=== PATIENT | male | born 1945 | race Caucasian/White ===

== ENCOUNTER 2017-11-06 03:05 | Inpatient (IN) | payer OTHER ==
[~2017-11-06] VITALS: Ht 175.3 cm; Wt 83.1 kg
--- NOTE | ~2017-11-06 | PR ---
[place], [place] PROGRESS NOTE NAME: JEANNA GOMEZ UNIT #: [id number] ROOM: 317 DOCTOR: LUIS MAXWELL MD BIRTHDATE: [birth year] DOS: 11/18/2017 CHIEF COMPLAINT: "Oh the sciatica is really bothering me, if I could only have some Tylenol for a few days it will probably knock it out." SUMMARY OF THE VISIT: The patient was interviewed in the back of the dining area where he sat on a couch watching television. He engaged readily in conversation. He was very much aware that today was [place] and he was anxious to watch the ball drop and call his and see how she was doing. On a negative note, he does report right-sided sciatica that flares up from time to time. In the past Tylenol for a few days usually stopped the pain. He requested that I do the same for him now. He reports that he is sleeping well and that the posttraumatic stress disorder symptoms that were so evident upon admission have nearly completely subsided. He is not as hypervigilant during the day. He feels very much positive and very much positive for the future. He convincingly denies any medication side effects. MENTAL STATUS: He is alert and oriented to person, place and time. Mood does seem to be euthymic. Affect appropriate. There is no harris or hypomania. There are no overt auditory or visual hallucinations. No delusions, no paranoia. Short, intermediate and long-term memories are intact. PLAN: I will write for Tylenol 650 mg t.i.d. for 3 days, then discontinue. Engage in individual and escalona milieu activity, returning to the least restrictive environment when psychiatrically stable. LUIS MAXWELL MD CM:PNTRANS [id number] LUIS MAXWELL MD 11/18/17 1053 interface
--- NOTE | ~2017-11-06 | DS ---
[place], [place] DISCHARGE SUMMARY NAME: JEANNA GOMEZ UNIT #: [id number] ROOM: 311 DOCTOR: LUIS MAXWELL MD BIRTHDATE: [birth year] DOS: 11/30/2017 ADDENDUM CHIEF COMPLAINT: "I am like a bad armand, I keep coming back doctor." SUMMARY OF THE VISIT: The patient was interviewed as he sat eating his breakfast in the dining area. He was bright, jovial and pleasant and joked with me about still being here in the hospital. He was aware that there was a delay in transportation to his [facility] and is hopeful that the transportation will take effect today and be able to get him closer to his . He reports good sleep and appetite. His mood is bright and pleasant. He is not experiencing posttraumatic stress disorder symptomatology any longer. He convincingly denies suicidal thoughts, homicidal thoughts or any self-injurious thoughts and likewise denies any medication side effects. He voices a readiness to leave the hospital. MENTAL STATUS: He is alert and oriented. Mood does seem to be euthymic. Affect appropriate. There are no symptoms of depression, harris or psychosis. Memory for the most part is intact. DIAGNOSIS AND DISPOSITION: As per previous discharge summaries. He will be discharged today. LUIS MAXWELL MD CM:DISCHARG [id number] LUIS MAXWELL MD 11/30/17 2323 interface
--- NOTE | ~2017-11-06 | PR ---
[place], [place] PROGRESS NOTE NAME: JEANNA GOMEZ UNIT #: [id number] ROOM: 317 DOCTOR: LISA ROSS,MY BIRTHDATE: [birth year] DOS: 11/07/2017 CHIEF COMPLAINT: "No, I walked the tong all night." SUMMARY OF THE VISIT: The patient was interviewed in his room. The patient complains of not getting much sleep last night, but rather walking around. At a later time, he said, "I slept like a baby last night." When asked p.r.n. meds helped. He said he did not talk to his yesterday, that "I haven't seen her in such a long time," and not sure where she is now. According to staff, patient did have a conversation with his over the phone yesterday. MENTAL STATUS: The patient is alert and oriented to person, place, but not time today. Short-term memory is poor. The patient appears slightly more confused and he processes slowly. Mood does seem to be depressed with anxious overtones. There is no evidence of psychosis, delusion, paranoia or hallucinations. Short term memory is poor. PLAN: Continue Remeron 15 mg at bedtime and Ativan p.r.n. in case he needs intervention for anxiety. We will discontinue trazodone. Increase Fanapt 2 mg b.i.d. from 1 mg b.i.d. daily to help with anxiety and PTSD hypervigilance. MY LISA, DO LUIS MAXWELL MD CM:UYEN 10 19 MY LISA DO 11/07/17 1220 interface
--- NOTE | ~2017-11-06 | PR ---
[place], [place] PROGRESS NOTE NAME: JEANNA GOMEZ UNIT #: [id number] ROOM: 317 DOCTOR: LUIS MAXWELL MD BIRTHDATE: [birth year] DOS: 11/09/2017 CHIEF COMPLAINT: "I slept like a baby that is the best night sleep I think I have gotten in years." SUMMARY OF THE VISIT: The patient was interviewed in the dining area. He went and reached out to shake my hand. He reports that he slept well and is feeling better. He is feeling less on edge and less hypervigilant. Per his report, he feels that the medications are working. He, however, continues to show marked fluctuations in both his mood as well as cognition. MENTAL STATUS: He is alert and oriented to person, place, not necessarily to time. Mood does seem to be trending towards euthymia. Affect is more appropriate. He denies harris or hypomania. He denies auditory or visual hallucinations. No delusions, no paranoia. Short term memory has some gaps. PLAN: I will go ahead and continue to titrate the Fanapt upward bringing the dose from 4 mg twice a day to 6 mg twice a day in an effort to further completely block the posttraumatic stress disorder symptomatology. I will maintain Remeron at 15 mg at bedtime to combat depression and likewise to block flashbacks. 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 I will reach out to the hospitalist to see if any further workup needs to be done. At this point, we are trying to sort through social issues to determine whether or not he has a power of deputy prosecuting attorney or not and whether he has a house or not to determine post-discharge plans. We will continue to engage him in individual and escalona milieu activity with the ultimate plan to return him to the least restrictive environment when psychiatrically stable. LUIS MAXWELL MD CM:PNTRANS 7 0 LUIS MAXWELL MD 11/09/17950 interface
--- NOTE | ~2017-11-06 | PR ---
[place], [place] PROGRESS NOTE NAME: JEANNA GOMEZ UNIT #: [id number] ROOM: 311 DOCTOR: LUIS MORAN MD BIRTHDATE: [birth year] DOS: 11/26/2017 CHIEF COMPLAINT: "Good morning, Dr. Moran, I did not think I would see you so soon." SUMMARY OF THE VISIT: The patient was interviewed as he sat in the dining area, watching television. He was jovial upon approach, joked with me about still being here hoping to be able to leave soon. He convincingly denies depression or harris and denies any posttraumatic stress disorder symptomatology. He does state that the medicines are working and the minimal somnolence that he had is now dissipated completely. He denies any side effects and is ready to be discharged as soon as we find an appropriate placement. MENTAL STATUS: He is alert and oriented to person, place and time. Mood does seem to be euthymic. Affect appropriate. There is no harris or hypomania. There is no psychotic symptomatology. Memory is intact. PLAN: He is stable with the current medication regimen, so we will maintain. We will engage in individual and escalona milieu activity. office services assistant is exploring VA options. At this point, the patient really needs to be discharged to a long-term care facility as he has lost criteria for an acute stay. LUIS MORAN MD CM:PNTRANS 1114 1139 LUIS MORAN MD 11/26/17 1138 interface
--- NOTE | ~2017-11-06 | PR ---
[place], [place] PROGRESS NOTE NAME: JEANNA GOMEZ UNIT #: [id number] ROOM: 317 DOCTOR: LISA ROSS,MY BIRTHDATE: [birth year] DOS: 11/15/2017 CHIEF COMPLAINT: "That was the greatest news I have heard of." SUMMARY OF THE VISIT: The patient was interviewed in a dining area. The patient was watching TV after finished breakfast. The patient denies any complaints or medication side effects besides grogginess. Said current regimen worked well for him and he is less hypervigilant. States, he "slept great last night like a log." Denies suicidal thoughts or hallucinations. Per staff, the patient has been compliant with all his medications, and interacts well with staff and other residents on unit. The patient was informed that he still has his house, but it is uncertain to us if it is habitable and if it is, he will be discharged as soon as we know more about his house condition. The patient nodded in agreement. According to staff, the patient's is currently in a 30-day rehab for hip fracture and received daily breathing treatment, not being intubated as he believed. MENTAL STATUS: The patient is alert and oriented x 4. Mood is pleasant, no signs of agitation or aggression. Affect is appropriate. Short term memory is intact. There is no evidence of psychosis, delusion, paranoia or hallucinations noted. PLAN: We will continue Remeron 15 mg at bedtime and other current psychotropic medications. fish house worker is working on having someone evaluates his house and if it deemed safe and habitable, he will be discharged home soon. For now, we will continue to engage the patient in individual and group activities. MY GONZALEZ, DO LUIS MAXWELL MD CM:PNTRANS [id number] MY LISA DO 11/16/17 0831 interface
--- NOTE | ~2017-11-06 | PR ---
[place], [place] PROGRESS NOTE NAME: JEANNA GOMEZ UNIT #: [id number] ROOM: 317 DOCTOR: LUIS MAXWELL MD BIRTHDATE: [birth year] DOS: 11/17/2017 CHIEF COMPLAINT: "Good morning doctor, thank you for coming in to see me today." SUMMARY OF THE VISIT: The patient was interviewed in his room where he was resting in bed, but was awake. He sat at the edge of his bed and engaged in conversation readily with me. He did report that he has not heard anything yet about leaving here and being able to be either closer to his in [place] or his sister in [place]. He still states that his ultimate plan is to be able to resume living with his in their own home. He is bright and pleasant and notes improved sleep with the medication and states that the early intervention school psychologist somnolence that was present so much earlier in the week is dissipating gradually. He denies any other issues. MENTAL STATUS: He is alert and oriented. Mood does seem to be strongly trending towards euthymia. Affect is much more appropriate. There are no symptoms of harris or hypomania. There are no overt auditory or visual hallucinations. No delusions, no paranoia. Memory for the most part is intact. PLAN: I will maintain his current psychotropic medication regimen, engage in individual and escalona milieu activity, returning to the least restrictive environment when psychiatrically stable. LUIS MAXWELL MD CM:PNTRANS 1011 1049 LUIS MAXWELL MD 11/17/17 1049 interface
--- NOTE | ~2017-11-06 | WRIGHTHP ---
[place], [place] PATIENT HISTORY AND PHYSICAL EXAM NAME: JEANNA GOMEZ UNIT #: [id number] ROOM: 311 DOCTOR: LUIS MAXWELL MD BIRTHDATE: [birth year] DOS: 11/06/2017 CHIEF COMPLAINT: "I just wanted to be in the front of the building. I guess I should not have done what I did." HISTORY OF PRESENT ILLNESS: This is a 72-year-old white male who is a resident of the [facility]. The patient was sent here on an involuntary basis after he became increasingly agitated while on the locked unit. He became very fixated on staff and made threatening comments to staff and residents. He tore up the [employer] tree and was so combative that police had to be called and he was escorted to a nearby emergency room. The patient this morning states with appropriate remorse that he became frustrated with his current living situation and did not like being locked up on a locked unit and wanted to be in the front of the building. He states that this was inappropriate and he does admit, however, to ongoing depression and posttraumatic stress disorder. The patient reports a history of active duty in [place] and continues to experience nighttime flashbacks as well as hypervigilance and others symptoms of posttraumatic stress disorder. The patient also has sleep disturbance and poor appetite. He reports multiple stressors including the detention placement and the fact that his is also in a long-term care facility, but in a different one and he has not seen or talk to her in some time. MENTAL STATUS: The patient is alert and oriented to person, place, and very much to time. Mood does seem to be depressed with anxious overtones. He endorses many symptoms suggestive of posttraumatic stress. There is no psychosis noted. There are no auditory or visual hallucinations. No delusions, no paranoia. For the most part, his memory does seem to be intact. DIAGNOSES: Posttraumatic stress disorder and major depression, recurrent. PLAN: I will start him on Remeron 15 mg at bedtime and discontinue his Zoloft due to ineffectiveness. I will also start him on Fanapt 1 mg twice daily to target anxiety and posttraumatic stress hypervigilance. We utilize Ativan p.r.n. in case he requires intervention. We will look to clinical social work therapist to see what can be done to improve his current living situation, returning then to the least restrictive environment when stable. [place], [place] PATIENT HISTORY AND PHYSICAL EXAM NAME: JEANNA GOMEZ UNIT #: [id number] ROOM: [facility] DOCTOR: LUIS MAXWELL MD BIRTHDATE: [birth year] LUIS MAXWELL MD CM:HISPHYS:PATIENT HISTORY AND PHYSICAL EXAMINATION [id number] [id number] LUIS MAXWELL MD 11/06/17 1023 interface
--- NOTE | ~2017-11-06 | PR ---
[place], [place] PROGRESS NOTE NAME: JEANNA GOMEZ UNIT #: [id number] ROOM: 317 DOCTOR: LUIS MAXEWLL MD BIRTHDATE: [birth year] DOS: 11/19/2017 CHIEF COMPLAINT: "Thank you, I did get to talk to my before the ball dropped, although I bet she did not stay up to see it." SUMMARY OF THE VISIT: The patient was interviewed in the group therapy room where he was sitting, working on crafts. He stopped, shook my hand and engaged readily in conversation. He continues to be bright and pleasant and reports that he is feeling so much better since he has been here. His sleep and appetite have improved. His overall cognitive status is improved. He is hopeful that as week now progresses some positive movement will be made where he can be placed into a prison or some type of facility that will either be closer to his sister in [place] or to his in [place]. He convincingly denies medication side effects and convincingly reports that the medicines have made a great impact on his overall mood and behavior. MENTAL STATUS: He is alert and oriented. Mood does seem to be strongly trending towards euthymia. Affect is much more appropriate. There is no symptom suggestive of hypomania or harris. There are no overt auditory or visual hallucinations. No delusions, no paranoia. Short, intermediate and long-term memory are intact. PLAN: I will maintain the current psychotropic regimen, engage in individual and escalona milieu activity with the ultimate plan to return to the least restrictive environment when psychiatrically stable. LUIS MAXWELL MD CM:PNTRANS 1000 1207 LUIS MAXWELL MD 11/19/17 1240 interface
--- NOTE | ~2017-11-06 | DS ---
[place], [place] DISCHARGE SUMMARY NAME: JEANNA GOMEZ UNIT #: [id number] ROOM: 311 DOCTOR: LUIS MORAN MD BIRTHDATE: [birth year] DOS: 11/29/2017 ADDENDUM. CHIEF COMPLAINT: "Well here I am still Dr. Moran, I hope I get to leave." SUMMARY OF THE VISIT: The patient was interviewed as he sat in the dining area, eating breakfast. He engaged readily in conversation. He was in a fairly euthymic state despite the frustration of remaining in the hospital waiting for the passer to be obtained in order for him to be actually discharged to his long-term care facility. The patient reports that the medications are working. He is not experiencing depression or posttraumatic stress disorder symptoms. He has been sleeping well, eating well and he has not exhibited any acting out. MENTAL STATUS AT DISCHARGE: The patient is alert and oriented with some mild gaps. Overall, his mood is euthymic. Affect is appropriate. Speech rate and pattern is within normal limits. There is no hypomania or harris. There are no auditory or visual hallucinations. No delusions, no paranoia. Short term memory has only mild gaps, otherwise he is fully intact. FINAL DIAGNOSES: Posttraumatic stress disorder and major depression, recurrent. PLAN: Discharge plans are as the previous dictations are noted. He will be discharged to the least restrictive environment today. LUIS MORAN MD CM:DISCHARG [phone] LUIS MORAN MD 11/29/17 1101 interface
--- NOTE | ~2017-11-06 | PR ---
[place], [place] PROGRESS NOTE NAME: JEANNA GOMEZ UNIT #: [id number] ROOM: 317 DOCTOR: LISA ROSS,MY BIRTHDATE: [birth year] DOS: 11/08/2017 DICTATING FOR: Dr. Maxwell. ROOM NUMBER: 317-2. CHIEF COMPLAINT: "It was a rough day yesterday. I slipped under the table." SUMMARY OF THE VISIT: The patient was interviewed in a quiet room across the nurse station, said he had a bad day yesterday with loss of flashbacks from the days he was in [place]. According to staff, the patient hid under the table yesterday and then moved it around. He then told them that he is a [place] with PTSD and he thought "they are going to put me back in the cage." Said his is his guardian and that she often finds him in the corner every single morning suffering from flashbacks. Today, the patient said he was brought here by his jaqlpsy-cd-vov and that he is afraid to go to his house because he has a big revolver. The patient said his was moved to [facility] recently and that he could hear a "beeping sounds" telling her to breathe. MENTAL STATUS: The patient is alert and oriented to person and place, approximate time. Mood is depressed with anxious tones at times, specially during flashback episodes. Memory is somewhat intact. There are no evidence of paranoia or hallucination. PLAN: We will continue Remeron 15 mg at bedtime and Ativan p.r.n. in case he needs intervention, we will increase Fanapt to 4 mg b.i.d. to help with anxiety and PTSD hypervigilance. We will continue to engage the patient in individual and escalona milieu activity with the plan is to discharge when the patient is psychiatrically stable. MY LISA [place], [place] PROGRESS NOTE NAME: JEANNA GOMEZ UNIT #: [id number] ROOM: [facility] DOCTOR: LISA ROSS,MY BIRTHDATE: [birth year] LUIS MAXWELL MD CM:UYEN 1153 [id number] HI GONZALEZ DO 11/13/17 0753 interface
--- NOTE | ~2017-11-06 | PR ---
[place], [place] PROGRESS NOTE NAME: JEANNA GOMEZ UNIT #: [id number] ROOM: 317 DOCTOR: MICHAEL JOHN,URSULA BIRTHDATE: [birth year] DOS: CHIEF COMPLAINT: "I am feeling good today." SUBJECTIVE: The patient is seen this morning in quiet room. He readily engaged in conversation. He is in a better mood this morning and stated that he is feeling much better. Mood has been better. He slept much better. Thoughts are getting clearer and he has been coming out and socializing and did engage in group therapy as well. MENTAL STATUS EXAMINATION: The patient is awake, alert, oriented to person, place and time, good eye contact. Mood trending towards euthymia. Affect getting brighter. No harris or hypomania and no overt psychosis, no delusions or paranoia. Memory seems to be intact. PLAN: The patient is showing improvement, so we shall continue his current medicines, continue his care and keep engaging him in escalona milieu. URSULA RODRIGUEZ MD CM:PNTRANS [id number] URSULA RODRIGUEZ MD 11/11/17 1324 interface
--- NOTE | ~2017-11-06 | PR ---
[place], [place] PROGRESS NOTE NAME: JEANNA GOMEZ UNIT #: [id number] ROOM: 317 DOCTOR: LUIS MAXWELL MD BIRTHDATE: [birth year] DOS: 11/13/2017 CHIEF COMPLAINT: "I talked to my , she wants me home in our house." SUMMARY OF THE VISIT: The patient was interviewed in his room. He engaged readily in conversation and reported that he is feeling much better from a depression and posttraumatic stress disorder standpoint. He reports that he is sleeping soundly through the night and not having any more nighttime flashbacks. Additionally, his daytime hypervigilance seems to be less; however, he does seem to be markedly delusional in that it is unclear if he truly talked to his . His is reportedly rather ill and on a ventilator. I did attempt to mildly confront him on this as well as confront him on the fact that he may no longer have a house to go back to and that the current plan is to look into a [place] facility in [place]. He nodded his head in agreement and did not offer much further discussion with me as to not going forward with these plans. He does on a positive note also seemed to be tolerating the current medication regimen well. I see no extrapyramidal symptoms, tardive dyskinesia, sedation or somnolence. MENTAL STATUS: He remains alert and oriented with some time gaps. Mood does seem to be trending towards euthymia and affect is more appropriate. There does seem to be persistent delusions regarding his family that are unwavering at this point. Short term memory is rather poor. PLAN: I will renew his Ativan p.r.n. in case he requires intervention, increase his Fanapt further from 6 mg b.i.d. to 8 mg b.i.d. targeting 24 mg daily as my maximum dose. Engage in individual and escalona milieu activity, planning then to return to the least restrictive environment when psychiatrically stable. LUIS MAXWELL MD CM:PNTRANS [phone] LUIS MAXWELL MD 11/13/17 1239 interface
--- NOTE | ~2017-11-06 | PR ---
[place], [place] PROGRESS NOTE NAME: JEANNA GOMEZ UNIT #: [id number] ROOM: 317 DOCTOR: LISA ROSS,MY BIRTHDATE: [birth year] DOS: 11/14/2017 CHIEF COMPLAINT: "I talked to my last night." SUMMARY OF THE VISIT: The patient was interviewed in a dining area. The patient was watching TV after finishing his breakfast. The patient states he talked to his last night and she is currently in a hospital having heart cath. Said his told him that their house has not been sold yet. The patient told us that he is better today and "going to let go easy now and let the social workers handle my situation." Nurse verified that the patient's is currently in the hospital and that he did talk to her yesterday. Today, the patient complains of feeling groggy. MENTAL STATUS: He remains alert and oriented with some time gaps. Mood does seem to be trending towards euthymia and the affect is more appropriate. Patient appears less hyper-vigilant throughout the day. Short term memory appears intact for the most part. There is no evidence of psychosis, delusion, paranoia or hallucination. The patient appears to tolerate medications well. PLAN: His current level of vitamin B12 is 326. Therefore, he will receive vitamin B12 1000 mg IM today. We will also recheck his serum ammonia level tomorrow. Continue other medications as ordered. We will continue to monitor his progression and medication side effects. coating line worker will verify the patient's house status. MY GONZALEZ, DO LUIS MAXWELL MD CM:PNTRANS 1124 20 MY GONZALEZ DO 11/16/17 0757 interface
--- NOTE | ~2017-11-06 | DS ---
[place], [place] DISCHARGE SUMMARY NAME: JEANNA GOMEZ UNIT #: [id number] ROOM: 317 DOCTOR: LUIS MAXWELL MD BIRTHDATE: [birth year] DOS: 11/20/2017 CHIEF COMPLAINT: "I just wanted to be in the front of the building. I guess I should not have done what I did." HISTORY OF PRESENT ILLNESS: This is a 72-year-old white male who [facility] The patient was sent here on an involuntary basis after he became increasingly agitated while on the locked unit. He became very fixated on staff and made threatening comments to both staff and residents. He tore up the [place] and was so combative police had to be called and had to escort him to a nearby emergency room. On the morning of admission to [facility], he did express appropriate remorse for his actions stating that he became very frustrated with his current living situation feeling like he was locked up. The patient reports a lengthy history of posttraumatic stress disorder related to his service in [place]. He continues to experience nighttime flashbacks that will wake him up in the middle of the night. He also experiences hypervigilance and is startled by loud noises and will occasionally relive traumatic events that occurred while he was in service in [place]. This seems to be a major trigger for some of his behaviors that occurred at the long-term care facility. He is admitted now to rule out organic factors to attempt to stabilize on medication and to determine the least restrictive environment for which he can be discharged. SUMMARY OF HOSPITAL COURSE: The patient was admitted to the unit where he had his trazodone and his Zoloft discontinued in lieu of Remeron 15 mg at bedtime. Remeron was utilized as an antidepressant that would also significantly impact on posttraumatic stress disorder symptomatology. Additionally, he was given Fanapt 1 mg twice daily and the dose was gradually titrated upwards to its maximum dose of 8 mg twice a day. Other than for 1 brief episode when he had a significant flashback in which he found himself crawling underneath tables and overturning chairs the medication took hold rather rapidly. His sleep normalized, his daytime flashbacks dissipated and he became much more pleasant and cooperative. Other than some mild daytime somnolence, he noted no other side effects from the medication. His biggest hope was to be able to be closer to be either his sister in [place], [place] or to his in [place], [place]. regulatory services consultant were in touch with multiple long-term care facilities in these areas trying to facilitate a significant and appropriate placement for him. The only other medication change that occurred was on the day of discharge when his Fanapt was broken from 8 mg b.i.d. to 4 mg in the morning and 12 mg at nighttime to further aid sleep at night and improve his overall level of alertness during the day. The patient voiced that he was ready to go and felt very happy with this current medication regimen, stating that this is the best he has felt for many years. He was discharged then to a long-term care facility that would adequately meet his needs. MENTAL STATUS AT DISCHARGE: The patient is alert and oriented to person, place and time. Mood does seem to be euthymic. Affect appropriate. There are no symptoms of hypomania or harris. There are no overt auditory or visual hallucinations. No delusions, no paranoia. Short term memory, long-term memory and intermediate for the most part are intact. [place], [place] DISCHARGE SUMMARY NAME: JEANNA GOMEZ UNIT #: [id number] ROOM: 317 DOCTOR: LUIS MAXWELL MD BIRTHDATE: [birth year] FINAL DIAGNOSES: Posttraumatic stress disorder and major depression, recurrent. PLAN: All of his prescriptions have been printed and will be sent with him. I will follow him upon his admission to a long-term care facility. LUIS MAXWELL MD CM:DISCHARG [id number] LUIS MAXWELL MD 11/20/17 1327 interface
--- NOTE | ~2017-11-06 | PR ---
[place], [place] PROGRESS NOTE NAME: JEANNA GOMEZ UNIT #: [id number] ROOM: 317 DOCTOR: MICHAEL JOHN,URSULA BIRTHDATE: [birth year] DOS: CHIEF COMPLAINT: "I am feeling better." SUBJECTIVE: The patient is seen this morning. He wanted to talk to me about his [id number]. He talked about his vqctudt-fk-tzc having some of his guns, did not make much sense. He was very tangential and could not hold any meaningful conversation, though he was very talkative. States that his mood is better, did sleep last night better. He had his breakfast this morning and he has been compliant with his medicines. MENTAL STATUS EXAMINATION: The patient is awake, alert, oriented to person, place and approximate to time, did engage in conversation, though was very tangential and could not hold any meaningful conversation. Mood trending towards euthymia. No overt harris or hypomania. Denies auditory or visual hallucinations. No delusions or paranoia. Short-term memory has some gaps. PLAN: The patient is showing some improvement, so we shall continue the same medicines for now, monitor his progress and try and engage him in escalona milieu as he is more stable. URSULA RODRIGUEZ MD CM:PNTRANS [id number] URSULA RODRIGUEZ MD 11/10/17 1205 interface
--- NOTE | ~2017-11-06 | PR ---
[place], [place] PROGRESS NOTE NAME: JEANNA GOMEZ UNIT #: [id number] ROOM: 317 DOCTOR: MICHAEL JOHN,URSULA BIRTHDATE: [birth year] DOS: CHIEF COMPLAINT: "I am feeling good this morning." SUBJECTIVE: The patient is seen this morning in dining area and later in his room, states that he has been feeling good this morning, mood has been better, did sleep okay last night. Denies any auditory or visual hallucinations and he has no other concerns at present. He has been coming to the dining area and has been socializing. As per nurses' report, he has been compliant with his medicines and they have no other concerns at present. MENTAL STATUS EXAMINATION: The patient is alert, awake, oriented to person, place and time. Good eye contact. Engaged in conversation. Speech somewhat rapid, but not pressured. Mood trending towards euthymia. Affect appropriate. No harris or hypomania and no evidence of psychosis at present. PLAN: The patient is showing improvement, so we shall continue his current medicines and continue his care and keep engaging him in escalona milieu. URSULA RODRIGUEZ MD CM:UYEN [id number] URSULA RODRIGUEZ MD 11/12/171116 interface
--- NOTE | ~2017-11-06 | PR ---
[place], [place] PROGRESS NOTE NAME: JEANNA GOMEZ UNIT #: [id number] ROOM: 311 DOCTOR: LISA ROSS,MY BIRTHDATE: [birth year] DOS: 11/16/2017 CHIEF COMPLAINT: "I slept great and just have a touch of grogginess this morning." SUMMARY OF THE VISIT: The patient was interviewed in a dining area. The patient sits in a chair, having breakfast with another resident. The patient denies any complaints or medications side effect beside mild grogginess, but said it is getting better. Denies suicidal thoughts or hallucination. Per staff, the patient has been compliant with all medications and interacts well with staff and other residents on unit. There is no aggression or agitation noted. The patient said he was informed by our health care social worker yesterday that he will be discharged to a facility where he and his would be staying together for short term. According to health care social worker today that it might not be possible due to his [facility] insurance, but they are working on getting him a place closer to his 's facility in [place], [place]. MENTAL STATUS: The patient is alert and oriented x 4. Mood is pleasant, no overt signs of agitation or aggression. No hypervigilance noted. Affect is appropriate. Short term memory is short and intact. There is no evidence of psychosis, delusion, paranoia or auditory or visual hallucinations. PLAN: We will continue Remeron 15 mg at bedtime and Fanapt 4 mg b.i.d., Ativan p.r.n. in case he needs interventions. fountain worker is working on placement. Continue to engage the patient in individual and group activities with the ultimate plan is to discharge the patient to a least restrictive environment. MY GONZALEZ, DO LUIS MAXWELL MD CM:PNTRANS [id number] HI GONZALEZ DO 12/04/17 0741 interface
--- NOTE | ~2017-11-06 | DS ---
[place], [place] DISCHARGE SUMMARY NAME: JEANNA GOMEZ UNIT #: [id number] ROOM: 317 DOCTOR: LUIS MAXWELL MD BIRTHDATE: [birth year] DOS: 11/21/2017 ADDENDUM CHIEF COMPLAINT: "Oh doctor, I hear that I am going to be closer to my , thank you so very much for everything you have all done for me." SUMMARY OF THE VISIT: The patient was interviewed in the dining area. He engaged readily in conversation. He reports that since I made the change in his Fanapt, so that he is taking 4 mg in the morning and 12 mg at night, he is much less somnolent in the die maker [employer]. He is sleeping extremely well at night. He feels that the medication regimen is working. He is very much happy that he will be in [place], [place] which is right next to his in [place]. She will be at [place] and he will be very close to her. He is bright and pleasant and very jovial. He denies medication side effects and denies any psychiatric symptomatology. He will be discharged then today to the [facility] in [facility]. DISCHARGE DIAGNOSIS AND DISPOSITION: As per the previous dictation of discharge summary. LUIS MAXWELL MD CM:DISCHARG [id number] LUIS MAXWELL MD 11/21/17 175 interface
[2017-11-06] MEDS ORDERED: METOPROLOL SUCC50 M1 PO (03:22)
[2017-11-06] MEDS ORDERED: NOVOLOG100 UNIT/1 SQ (03:23)
[2017-11-06] MEDS ORDERED: PLAVIX75 M1 PO (03:24)
[2017-11-06] MEDS ORDERED: PANTOPRAZOLE SO20 MG PO (03:25)
[2017-11-06] MEDS ORDERED: SEROQUEL50 MG PO (03:26)
[2017-11-06] MEDS ORDERED: ZOLOFT50 MG PO (03:27)
[2017-11-06] MEDS ORDERED: Synthroid,Lev150 MCG PO (03:28)
[2017-11-06] MEDS ORDERED: TERAZOSIN HCL2 M1 PO (03:29)
[2017-11-06] MEDS ORDERED: TRAZODONE50 MG PO (03:30)
[2017-11-06] MEDS ORDERED: LIPITOR40 MG PO (03:31)
[2017-11-06] MEDS ORDERED: ASPIRIN ADULT L81 M1 PO (03:31)
[2017-11-06] MEDS ORDERED: FENOFIBRATE145 M1 PO (03:32)
[2017-11-06] MEDS ORDERED: COLACE100 MG PO (03:32)
[2017-11-06] MEDS ORDERED: FISH OIL CONC1000 M1 PO (03:34)
[2017-11-06] MEDS ORDERED: IRON325 M3 PO (03:34)
[2017-11-06] MEDS ORDERED: LANTUS SOL100 UNIT/1 SQ (03:37)
[2017-11-06] MEDS ORDERED: METFORMIN HYD1000 MG PO (03:38)
[2017-11-06 06:03] VITALS: BP 158/78
[2017-11-06 07:48] VITALS: BP 121/62
[2017-11-06 20:27] VITALS: BP 146/60
[2017-11-07 07:53] VITALS: BP 136/61
[2017-11-07 20:00] VITALS: BP 148/76
[2017-11-08 11:16] VITALS: BP 127/60
[2017-11-08 20:00] VITALS: BP 116/52
[2017-11-09 07:31] LABS: BASO % 0.4 % (0.0-1.0); EOS # 0.1 10*3/uL (0.0-0.4); EOS % 1.6 % (1.0-4.0); HEMATOCRIT 36.3 % (42.0-52.0); HEMOGLOBIN 12.1 g/dl (14.0-18.0); LYMPH # 1.2 10*3/uL (1.3-4.4); LYMPH % 27.3 % (27.0-41.0); MEAN CELL VOLUME 83.8 fl (80.0-94.0); MEAN CORPUSCULAR HGB 27.9 pg (27.0-31.0); MEAN CORPUSCULAR HGB CONC 33.3 g/dl (33.0-37.0); MEAN PLATELET VOLUME 10.7 fl (9.6-12.3); MONO # 0.4 10*3/uL (0.1-1.0); MONO % 8.1 % (3.0-9.0); NEUT # 2.8 10*3/uL (2.3-7.9); NEUT % 61.9 % (47.0-73.0); PLATELET COUNT AUTOMATED 90 10*3/uL (130-400); RED BLOOD COUNT 4.33 10*6/uL (4.50-5.90); RED CELL DISTRI WIDTH 13.4 % (0-14.5); WHITE BLOOD COUNT 4.5 10*3/uL (4.8-10.8)
[2017-11-09 08:01] LABS: ALBUMIN 3.9 gm/dl (3.1-4.5); ALKALINE PHOSPHATASE 65 U/L (45-117); BUN 7 mg/dl (7-24); CHLORIDE 97 mmol/L (98-107); CHOLESTEROL 80 mg/dL (<200); CREATININE 0.95 mg/dL (0.70-1.30); HDL CHOLESTEROL 37 mg/dl (40-60); LDL CHOLESTEROL 30 mg/dL (9-159); POTASSIUM 3.7 mmol/L (3.5-5.1); SGOT/AST 23 IU/L (3-35); SGPT/ALT 34 U/L (12-78); SODIUM 133 mmol/L (136-145); TOTAL PROTEIN 7.5 gm/dL (6.4-8.2); TRIGLYCERIDES 67 mg/dl (<150); VLDL CHOLESTEROL 13 mg/dL (6-40)
[2017-11-09 08:16] VITALS: BP 151/83
[2017-11-09 20:00] VITALS: BP 157/65
[2017-11-10 07:05] LABS: BASO % 0.6 % (0.0-1.0); EOS # 0.1 10*3/uL (0.0-0.4); EOS % 1.6 % (1.0-4.0); HEMOGLOBIN 11.6 g/dl (14.0-18.0); LYMPH # 1.2 10*3/uL (1.3-4.4); LYMPH % 24.3 % (27.0-41.0); MEAN CELL VOLUME 85.2 fl (80.0-94.0); MEAN CORPUSCULAR HGB 28.2 pg (27.0-31.0); MEAN CORPUSCULAR HGB CONC 33.1 g/dl (33.0-37.0); MONO # 0.4 10*3/uL (0.1-1.0); MONO % 7.4 % (3.0-9.0); NEUT # 3.2 10*3/uL (2.3-7.9); NEUT % 65.7 % (47.0-73.0); PLATELET COUNT AUTOMATED 89 10*3/uL (130-400); RED BLOOD COUNT 4.11 10*6/uL (4.50-5.90); RED CELL DISTRI WIDTH 13.3 % (0-14.5); WHITE BLOOD COUNT 4.9 10*3/uL (4.8-10.8)
[2017-11-10 07:38] LABS: ALBUMIN 3.9 gm/dl (3.1-4.5); BUN 10 mg/dl (7-24); CHLORIDE 98 mmol/L (98-107); CREATININE 1.06 mg/dL (0.70-1.30); POTASSIUM 4.5 mmol/L (3.5-5.1); SGOT/AST 25 IU/L (3-35); SGPT/ALT 40 U/L (12-78); SODIUM 133 mmol/L (136-145)
[2017-11-10 07:39] LABS: ALKALINE PHOSPHATASE 84 U/L (45-117); TOTAL PROTEIN 7.1 gm/dL (6.4-8.2)
[2017-11-10 08:06] VITALS: BP 148/74
[2017-11-10 09:11] LABS: BILIRUBIN NEGATIVE (NEGATIVE); BLOOD NEGATIVE (NEGATIVE); CLARITY CLEAR (CLEAR); COLOR YELLOW (YELLOW); GLUCOSE 1+ (NEGATIVE); KETONE NEGATIVE (NEGATIVE); LEUKO ESTERASE NEGATIVE (NEGATIVE); NITRITE NEGATIVE (NEGATIVE); UROBILINOGEN 0.2 E.U./dl (0.2-1.0)
[2017-11-10 20:46] VITALS: BP 134/58
[2017-11-11 05:41] LABS: ALBUMIN 3.6 gm/dl (3.1-4.5); ALKALINE PHOSPHATASE 68 U/L (45-117); BUN 10 mg/dl (7-24); CHLORIDE 98 mmol/L (98-107); IRON 52 ug/dL (65-175); POTASSIUM 3.8 mmol/L (3.5-5.1); SGOT/AST 22 IU/L (3-35); SGPT/ALT 35 U/L (12-78); SODIUM 136 mmol/L (136-145); TOTAL IRON BINDING CAPACITY 357 ug/dl (250-450); TOTAL PROTEIN 6.7 gm/dL (6.4-8.2)
[2017-11-11 05:55] LABS: BASO % 0.8 % (0.0-1.0); EOS # 0.1 10*3/uL (0.0-0.4); EOS % 2.4 % (1.0-4.0); HEMATOCRIT 34.3 % (42.0-52.0); HEMOGLOBIN 11.5 g/dl (14.0-18.0); LYMPH # 1.5 10*3/uL (1.3-4.4); LYMPH % 30.5 % (27.0-41.0); MEAN CELL VOLUME 84.3 fl (80.0-94.0); MEAN CORPUSCULAR HGB 28.3 pg (27.0-31.0); MEAN CORPUSCULAR HGB CONC 33.5 g/dl (33.0-37.0); MONO # 0.3 10*3/uL (0.1-1.0); MONO % 6.4 % (3.0-9.0); NEUT % 59.3 % (47.0-73.0); PLATELET COUNT AUTOMATED 94 10*3/uL (130-400); RED BLOOD COUNT 4.07 10*6/uL (4.50-5.90); RED CELL DISTRI WIDTH 13.2 % (0-14.5)
[2017-11-11 08:03] VITALS: BP 115/67
[2017-11-11 08:23] LABS: FERRITIN 72.3 ng/mL (22.0-322.0)
[2017-11-11 20:22] VITALS: BP 134/64
[2017-11-12 08:25] VITALS: BP 138/67
[2017-11-12 19:58] VITALS: BP 154/65
[2017-11-13 08:00] VITALS: BP 130/69
[2017-11-13 20:00] VITALS: BP 142/86
[2017-11-14 08:43] VITALS: BP 110/67
[2017-11-14 20:00] VITALS: BP 126/69
[2017-11-15 07:57] VITALS: BP 110/67; BP 148/78
[2017-11-15 20:00] VITALS: BP 118/70
[2017-11-16 07:57] VITALS: BP 143/68
[2017-11-16 19:50] VITALS: BP 114/56
[2017-11-17 08:00] VITALS: BP 119/55
[2017-11-17 20:00] VITALS: BP 124/54
[2017-11-18 08:40] VITALS: BP 105/5
[2017-11-18 08:45] VITALS: BP 130/68
[2017-11-18 20:00] VITALS: BP 125/53
[2017-11-19 07:53] VITALS: BP 149/59
[2017-11-19 21:32] VITALS: BP 126/58
[2017-11-20 08:00] VITALS: BP 140/70
[2017-11-20] MEDS ORDERED: MIRTAZAPINE15 M2 PO (09:09)
[2017-11-20] MEDS ORDERED: FANAPT4 MG PO (09:23)
[2017-11-20] MEDS ORDERED: FANAPT12 MG PO (09:23)
[2017-11-20] MEDS ORDERED: GLUCOPHAGE1000 MG PO (10:06)
[2017-11-20] MEDS ORDERED: VITAMIN D31000 UNIT PO (10:06)
[2017-11-20 20:03] VITALS: BP 129/64
[2017-11-21 08:04] VITALS: BP 100/52
[2017-11-21 20:00] VITALS: BP 109/52
[2017-11-22 08:16] VITALS: BP 148/67
[2017-11-22 20:00] VITALS: BP 122/68
[2017-11-23 07:54] VITALS: BP 130/58
[2017-11-23 20:00] VITALS: BP 117/57
[2017-11-24 08:05] VITALS: BP 116/59
[2017-11-24 20:00] VITALS: BP 114/54
[2017-11-25 08:12] VITALS: BP 117/58
[2017-11-25 20:00] VITALS: BP 137/61
[2017-11-26 08:05] VITALS: BP 118/62
[2017-11-26 20:00] VITALS: BP 114/58
[2017-11-27 07:58] VITALS: BP 120/72
[2017-11-27 09:58] VITALS: BP 120/72
[2017-11-28 08:12] VITALS: BP 134/64
[2017-11-28 20:00] VITALS: BP 110/62
[2017-11-29 08:13] VITALS: BP 120/59
[2017-11-29 20:00] VITALS: BP 132/52
[2017-11-30 07:50] VITALS: BP 128/76
== END 2017-11-30 12:38 | disposition other institution (70) | DRG 885 ==
LOC: 3N 03:05
PROVIDERS: Emergency Medicine; Psychiatry & Neurology Psychiatry; Registered Nurse
DX: F33.9 Major depressive disorder, recurrent, unspecified (principal); D69.6 Thrombocytopenia, unspecified; E11.65 Type 2 diabetes mellitus with hyperglycemia; F03.90 Unspecified dementia, unspecified severity, without behavioral disturbance, psychotic disturbance, mood disturbance, and anxiety; E83.42 Hypomagnesemia; F43.10 Post-traumatic stress disorder, unspecified; E78.2 Mixed hyperlipidemia; I10 Essential (primary) hypertension; M54.30 Sciatica, unspecified side; N40.0 Benign prostatic hyperplasia without lower urinary tract symptoms; K21.9 Gastro-esophageal reflux disease without esophagitis; E03.9 Hypothyroidism, unspecified; I25.2 Old myocardial infarction; Z95.818 Presence of other cardiac implants and grafts; Z82.49 Family history of ischemic heart disease and other diseases of the circulatory system; Z84.89 Family history of other specified conditions; Z86.73 Personal history of transient ischemic attack (TIA), and cerebral infarction without residual deficits; Z88.8 Allergy status to other drugs, medicaments and biological substances; Z79.82 Long term (current) use of aspirin; Z79.84 Long term (current) use of oral hypoglycemic drugs; Z79.4 Long term (current) use of insulin; Z79.899 Other long term (current) drug therapy